=== PATIENT | male | born 1985 | race Caucasian/White ===

== ENCOUNTER → 2023-08-06 | Outpatient (CLI) | payer BC ==
[2023-08-06 12:54] LABS: BASO % 0.5 % (0.0-1.0); EOS # 0.5 10^3/uL (0.0-0.5); EOS % 7.7 % (0.0-3.0); HEMATOCRIT 44.6 % (42.0-52.0); HEMOGLOBIN 14.9 g/dl (13.5-17.5); LYMPH # 2.1 10^3/uL (1.5-5.0); MEAN CORPUSCULAR HEMOGLOBIN 30.8 pg (27.0-33.0); MEAN CORPUSCULAR HGB CONC 33.4 g/dl (32.0-36.5); MEAN CORPUSCULAR VOLUME 92.3 fl (80.0-96.0); MONO # 0.7 10^3/uL (0.0-0.8); MONO % 11.1 % (2.0-8.0); NEUTROPHILS % 47.4 % (36.0-66.0); PLATELET COUNT, AUTOMATED 261 10^3/uL (150-450); RED BLOOD COUNT 4.83 10^6/uL (4.30-6.10); WHITE BLOOD COUNT 6.2 10^3/uL (4.0-10.0)
[2023-08-06 13:21] LABS: PROSTATIC SPECIFIC AG MONITOR 1.65 NG/ML (< 4.00)
[2023-08-06 13:24] LABS: TOTAL 25(OH) VITAMIN D 32.6 NG/ML (20.0-100.0)
[2023-08-06 13:25] LABS: ALBUMIN 3.7 G/DL (3.2-5.2); ALKALINE PHOSPHATASE 52 U/L (46-116); ALT/SGPT 25 U/L (7.0-40); AST/SGOT 16 U/L (<34); BILIRUBIN,TOTAL 0.5 MG/DL (0.3-1.2); BLOOD UREA NITROGEN 15 MG/DL (9-23); CALCIUM LEVEL 8.6 MG/DL (8.5-10.1); CARBON DIOXIDE LEVEL 31 MMOL/L (20-31); CHLORIDE LEVEL 104 MMOL/L (98-107); CREATININE FOR GFR 0.84 MG/DL (0.70-1.30); ESTRADIOL 22.2 PG/ML (<39.8); GLOMERULAR FILTRATION RATE > 60.0 (>60); GLUCOSE, FASTING 95 MG/DL (60-100); POTASSIUM SERUM 4.6 MMOL/L (3.5-5.1); SODIUM LEVEL 140 MMOL/L (136-145); THYROID STIMULATING HORMONE 2.207 uIU/ML (0.55-4.78); TOTAL PROTEIN 7.1 G/DL (5.7-8.2)
[2023-08-06 13:26] LABS: FOLLICLE STIMULATING HORMONE 4.5 mIU/ML (1.4-18.1); PROLACTIN 11.96 NG/ML (2.1-17.7)
[2023-08-06 13:27] LABS: LUTEINIZING HORMONE 3.2 mIU/ML (1.5-9.3)
== END ==
LOC: M WUC 09:00
PROVIDERS: ATTEND Emergency Medicine
DX: Z79.890 Hormone replacement therapy (principal); R86.1 Abnormal level of hormones in specimens from male genital organs; Z00.01 Encounter for general adult medical examination with abnormal findings; R53.83 Other fatigue; E55.9 Vitamin D deficiency, unspecified; Z13.29 Encounter for screening for other suspected endocrine disorder

== ENCOUNTER → 2023-10-22 | Outpatient (CLI) | payer BC ==
[2023-10-22 13:08] LABS: BASO % 0.7 % (0.0-1.0); EOS # 0.3 10^3/uL (0.0-0.5); EOS % 5.6 % (0.0-3.0); HEMATOCRIT 47.5 % (42.0-52.0); HEMOGLOBIN 15.5 g/dl (13.5-17.5); LYMPH # 1.8 10^3/uL (1.5-5.0); LYMPH % 29.6 % (24.0-44.0); MEAN CORPUSCULAR HEMOGLOBIN 30.9 pg (27.0-33.0); MEAN CORPUSCULAR HGB CONC 32.6 g/dl (32.0-36.5); MEAN CORPUSCULAR VOLUME 94.6 fl (80.0-96.0); MONO # 0.8 10^3/uL (0.0-0.8); MONO % 12.8 % (2.0-8.0); NEUTROPHILS # 3.1 10^3/uL (1.5-8.5); NEUTROPHILS % 50.8 % (36.0-66.0); PLATELET COUNT, AUTOMATED 255 10^3/uL (150-450); RED BLOOD COUNT 5.02 10^6/uL (4.30-6.10)
[2023-10-23 07:12] LABS: SEX HORMONE BINDING GLOBULIN 23 nmol/L (10-50)
== END ==
LOC: M WUC 09:09
PROVIDERS: ATTEND Emergency Medicine
DX: Z79.890 Hormone replacement therapy (principal); R86.1 Abnormal level of hormones in specimens from male genital organs; Z00.01 Encounter for general adult medical examination with abnormal findings; R53.83 Other fatigue

== ENCOUNTER → 2024-02-28 | Outpatient (CLI) | payer BC ==
[2024-02-28 15:17] LABS: BASO % 0.4 % (0.0-1.0); EOS # 0.2 10^3/uL (0.0-0.5); EOS % 3.8 % (0.0-3.0); HEMATOCRIT 50.1 % (42.0-52.0); HEMOGLOBIN 16.5 g/dl (13.5-17.5); LYMPH # 1.8 10^3/uL (1.5-5.0); LYMPH % 32.1 % (24.0-44.0); MEAN CORPUSCULAR HEMOGLOBIN 30.6 pg (27.0-33.0); MEAN CORPUSCULAR HGB CONC 32.9 g/dl (32.0-36.5); MEAN CORPUSCULAR VOLUME 92.9 fl (80.0-96.0); MONO # 0.7 10^3/uL (0.0-0.8); MONO % 12.5 % (2.0-8.0); NEUTROPHILS # 2.8 10^3/uL (1.5-8.5); NEUTROPHILS % 50.8 % (36.0-66.0); PLATELET COUNT, AUTOMATED 271 10^3/uL (150-450); RED BLOOD COUNT 5.39 10^6/uL (4.30-6.10); WHITE BLOOD COUNT 5.5 10^3/uL (4.0-10.0)
== END ==
LOC: M WUC 09:09
PROVIDERS: ATTEND Emergency Medicine
DX: Z00.01 Encounter for general adult medical examination with abnormal findings (principal); R86.1 Abnormal level of hormones in specimens from male genital organs; Z79.890 Hormone replacement therapy; R53.83 Other fatigue

== ENCOUNTER → 2024-06-23 | Outpatient (REF) | payer BC ==
[2024-06-23 10:47] LABS: SEMEN APPEARANCE OPAQUE (OPAQUE); SEMEN VISCOSITY LIQUID (LIQUID); SEMEN VOLUME 1.7 ml (2.0-5.0); SEMEN pH 8.5 (7.0-8.0); WBC CONCENTRATION >1 M/ml (<=1 M/ml)
== END ==
LOC: M LAB REF 10:26
PROVIDERS: ATTEND Family Medicine
DX: Z30.2 Encounter for sterilization (principal)